=== PATIENT | female | born 1995 | race Two or more races ===

== ENCOUNTER 2017-08-08 04:26 | Emergency (ER) | payer OTHER ==
--- NOTE | 2017-08-08 04:30 | PDOC ---
History of Present Illness - General Stated Complaint: ABDOMINAL AND SIDE PAIN Time Seen by Provider: 08/08/17 04:29 - History of Present Illness Initial Comments: 08/08/17 04:29 Ms. Ott is a 22 yo woman w/ no pmh who presents c/o a 1 day history of left abdominal and flank pain. She reports the pain started around 10 am and has steadily increased throughout the day. She describes the pain as constant and radiating from her LLQ to her L flank. She has also had associated nausea w/ out vomiting, diarrhea, or other urinary/bowel changes. The patient denies chest pain, shortness of breath, headache and dizziness. Denies fever, chills, vomit, and constipation. Denies dysuria, frequency, urgency and hematuria. Allergies: NKDA Past History - Past Medical History Allergies/Adverse Reactions: Allergies Allergy/AdvReac Type Severity Reaction Status Date / Time almonds Allergy Intermediate Itching Uncoded 08/08/17 04:44 carrots Allergy Intermediate Swelling Uncoded 08/08/17 04:44 cherries Allergy Intermediate Swelling Uncoded 08/08/17 04:44 Home Medications: Ambulatory Orders NK [No Known Home Medication] 08/08/17 Asthma: No Cancer: No Cardiac Disorders: No Diabetes: No HTN: No Seizures: No Thyroid Disease: Yes (no longer on meds) - Immunization History Immunization Up to Date: Yes - Suicide/Smoking/Psychosocial Hx Smoking Status: No Smoking History: Never smoked Number of Cigarettes Smoked Daily: 0 Hx Alcohol Use: No Drug/Substance Use Hx: No Hx Substance Use Treatment: No Review of Systems - Review of Systems Comments:: 08/08/17 04:29 GENERAL/CONSTITUTIONAL: No fever or chills. No weakness. HEAD, EYES, EARS, NOSE AND THROAT: No change in vision. No ear pain or discharge. No sore throat. CARDIOVASCULAR: No chest pain or shortness of breath RESPIRATORY: No cough, wheezing, or hemoptysis. GASTROINTESTINAL: +LLQ pain radiating to flank as described with associated nausea. No vomiting, diarrhea or constipation. GENITOURINARY: No dysuria, frequency, or change in urination. MUSCULOSKELETAL: No joint or muscle swelling or pain. No neck or back pain. SKIN: No rash NEUROLOGIC: No headache, vertigo, loss of consciousness, or change in strength/ sensation. ENDOCRINE: No increased thirst. No abnormal weight change HEMATOLOGIC/LYMPHATIC: No anemia, easy bleeding, or history of blood clots. ALLERGIC/IMMUNOLOGIC: No hives or skin allergy. *Physical Exam - Physical Exam Comments: 08/08/17 04:29 GENERAL: Awake, alert, and fully oriented, in no acute distress HEAD: No signs of trauma, normocephalic, atraumatic EYES: PERRLA, EOMI, sclera anicteric, conjunctiva clear ENT: Auricles normal inspection, hearing grossly normal, nares patent, oropharynx clear without exudates. Moist mucosa NECK: Normal ROM, supple, no lymphadenopathy, JVD, or masses LUNGS: No distress, speaks full sentences, clear to auscultation bilaterally HEART: Regular rate and rhythm, normal S1 and S2, no murmurs, rubs or gallops, peripheral pulses normal and equal bilaterally. ABDOMEN: +LLQ TTP. Soft, normoactive bowel sounds. No guarding, no rebound. No masses EXTREMITIES: Normal inspection, Normal range of motion, no edema. No clubbing or cyanosis. NEUROLOGICAL: Cranial nerves II through XII grossly intact. Normal speech, normal gait, no focal sensorimotor deficits SKIN: Warm, Dry, normal turgor, no rashes or lesions noted. ED Treatment Course - LABORATORY CBC & Chemistry Diagram: 08/08/17 05:10 08/08/17 05:10 Medical Decision Making - Medical Decision Making 08/08/17 05:02 Ms. Ott is a 22 yo woman w/ no pmh who presents for evaluation of left abdominal / flank pain. CBC/CMP/UA/Urine Cx/upreg/CT abdomen sent for evaluation. 08/08/17 06:43 Labs as below significant for UTI with 2+ Leukocyte Esterase and 1+ blood. Patient signed out to Dr. Chopra for further care. Laboratory Results - last 24 hr 08/08/17 08/08/17 08/08/17 05:10 05:10 05:10 WBC 11.6 H RBC 4.17 D Hgb 13.2 D Hct 38.5 D MCV 92.2 MCH 31.7 MCHC 34.4 RDW 12.8 D Plt Count 252 D MPV 7.4 L D Neutrophils % 77.9 Lymphocytes % 10.2 D Monocytes % 10.6 H Eosinophils % 0.6 Basophils % 0.7 D Sodium 139 Potassium 3.9 Chloride 106 Carbon Dioxide 25 Anion Gap 8 BUN 9 Creatinine 0.8 Creat Clearance w eGFR > 60 Random Glucose 96 Calcium 8.6 Total Bilirubin 1.6 H AST 9 L ALT 15 Alkaline Phosphatase 43 L Total Protein 7.6 Albumin 3.7 Serum , Qual Negative Urine Color Urine Appearance Urine pH Ur Specific [place] Urine Protein Urine Glucose (UA) Urine Ketones Urine Blood Urine Nitrite Urine Bilirubin Urine Urobilinogen Ur Leukocyte Esterase Urine WBC (Auto) Urine RBC (Auto) 08/08/17 06:02 WBC RBC Hgb Hct MCV MCH MCHC RDW Plt Count MPV Neutrophils % Lymphocytes % Monocytes % Eosinophils % Basophils % Sodium Potassium Chloride Carbon Dioxide Anion Gap BUN Creatinine Creat Clearance w eGFR Random Glucose Calcium Total Bilirubin AST ALT Alkaline Phosphatase Total Protein Albumin Serum , Qual Urine Color Straw Urine Appearance Clear Urine pH 6.0 Ur Specific [place] 1.004 Urine Protein Negative Urine Glucose (UA) Negative Urine Ketones Negative Urine Blood 1+ H Urine Nitrite Negative Urine Bilirubin Negative Urine Urobilinogen Negative Ur Leukocyte Esterase 2+ H Urine WBC (Auto) 43 Urine RBC (Auto) 2 *DC/Admit/Observation/Transfer Diagnosis at time of Disposition: UTI (urinary tract infection) Qualifiers: Urinary tract infection type: site unspecified Hematuria presence: with hematuria Qualified Code(s): N39.0 - Urinary tract infection, site not specified ; R31.9 - Hematuria, unspecified; R31.9 - Hematuria, unspecified - Referrals Referrals: Callie Cary MD [Primary Care Provider] - - Patient Instructions - Post Discharge Activity
[2017-08-08 04:45] VITALS: BMI 27.3
[2017-08-08 05:24] LABS: BASO % 0.7 % (0-2.0); EOS % 0.6 % (0-4.5); HEMATOCRIT 38.5 % (32.4-45.2); HEMOGLOBIN 13.2 GM/dL (10.7-15.3); LYMPH % 10.2 % (8-40); MCH 31.7 pg (25.7-33.7); MCHC 34.4 g/dl (32.0-36.0); MEAN CELL VOLUME 92.2 fl (80-96); MEAN PLT VOLUME 7.4 fl (7.5-11.1); MONO % 10.6 % (3.8-10.2); NEUT % 77.9 % (42.8-82.8); PLATELET COUNT 252 K/MM3 (134-434); RBC 4.17 M/mm3 (3.60-5.2); RDW 12.8 % (11.6-15.6); WHITE BLOOD COUNT 11.6 K/mm3 (4.0-10.0)
--- NOTE | 2017-08-08 05:31 | PDOC ---
Attending Attestation - Resident Resident Name: Gamal Muñoz - ED Attending Attestation I have performed the following: I have examined & evaluated the patient, The case was reviewed & discussed with the resident, I agree w/resident's findings & plan, Exceptions are as noted - HPI HPI: 08/08/17 05:31 "Patient is a 22 year old female with no significant past medical history of who presents to the ED with complaints of lower left quadrant pain that began yesterday morning. Patient reports waking up yesterday morning and experienced sudden lower left quadrant pain that she states has gotten worse over time. She reports experiencing associated left flank pain. Denies dysuria. Denies F/C. Pt denies h/o kidney stones. Denies N/V/D. Denies any migration of the pain over time. Pt states the pain is constant, not colicky. Denies vaginal discharge/ bleeding. Denies chest pain, Sob. Denies nausea, vomiting. Denies contact with sick individuals, out of state travelling. Denies trauma to affected area. Allergies: Almonds, Carrots, cherries Social history: No smoking. No alcohol. No illicit drugs. Surgical history: none PMD: None " - Physicial Exam PE: 08/08/17 05:19 "GENERAL: Awake, alert, and fully oriented, in no acute distress. HEAD: No signs of trauma EYES: PERRLA, EOMI, sclera anicteric, conjunctiva clear ENT: Auricles normal inspection, hearing grossly normal, nares patent, oropharynx clear without exudates. Moist mucosa NECK: Nontender, no stepoffs, Normal ROM, supple, no lymphadenopathy, JVD, or masses LUNGS: Breath sounds equal, clear to auscultation bilaterally. No wheezes, and no crackles HEART: Regular rate and rhythm, normal S1 and S2, no murmurs, rubs or gallops ABDOMEN: +L side tenderness, no significant abdominal tenderness, no CVAT, normoactive bowel sounds. No guarding, no rebound. No masses EXTREMITIES: Normal range of motion, no edema. No clubbing or cyanosis. No cords, erythema, or tenderness NEUROLOGICAL: Cranial nerves II through XII intact. 5/5 strength and sensation in all extremities, Normal speech, normal gait, normal cerebellar function SKIN: Warm, Dry, normal turgor, no rashes or lesions noted. " - Medical Decision Making 08/08/17 05:32 22 F with L side pain. Possible renal colic, though pain is constant and not colicky. Also consider colitis or gastroenteritis, though pt denies diarrhea. - Labs, UA, UPT - CTAP UA consistent with UTI. Spiral CT ordered to r/o infected stone vs pyelo. Pt started on Keflex. Pt signed out to oncoming attending at 7am, pending CT and re-evaluation.
[2017-08-08 06:07] LABS: ALBUMIN 3.7 g/dl (3.4-5.0); ANION GAP 8 (8-16); BILIRUBIN,TOTAL 1.6 mg/dL (0.2-1.0); BLOOD UREA NITROGEN 9 mg/dL (7-18); CALCIUM 8.6 mg/dL (8.5-10.1); CHLORIDE 106 mmol/L (98-107); CO2 25 mmol/L (21-32); CREATININE 0.8 mg/dL (0.55-1.02); GLUCOSE,RANDOM 96 mg/dL (74-106); POTASSIUM 3.9 mmol/L (3.5-5.1); SGOT/AST 9 U/L (15-37); SGPT/ALT 15 U/L (12-78); SODIUM 139 mmol/L (136-145); TOT PROT 7.6 g/dl (6.4-8.2)
[2017-08-08 06:08] LABS: ALK PHOS 43 U/L (45-117)
[2017-08-08 06:27] LABS: URINE APPEARANCE CLEAR; URINE BILIRUBIN NEGATIVE (<2.0 mg/dL); URINE BLOOD 1+ (NEGATIVE); URINE COLOR STRAW; URINE GLUCOSE (UA) NEGATIVE (NEGATIVE); URINE KETONE NEGATIVE (NEGATIVE); URINE NITRITE NEGATIVE (NEGATIVE); URINE PROTEIN NEGATIVE (NEGATIVE); URINE UROBILINOGEN NEGATIVE mg/dL (0.2-1.0)
[2017-08-08 06:37] LABS: URINE LEUK ESTERASE 2+ (NEGATIVE)
--- NOTE | 2017-08-08 07:06 | PDOC ---
*Physical Exam - Vital Signs Last Vital Signs Temp Pulse Resp BP Pulse Ox 98.9 F 116 H 20 124/79 99 08/08/17 04:30 08/08/17 04:30 08/08/17 04:30 08/08/17 04:30 08/08/17 04:30 ED Treatment Course - LABORATORY CBC & Chemistry Diagram: 08/08/17 05:10 08/08/17 05:10 - ADDITIONAL ORDERS Additional order review: Laboratory Results 08/08/17 08/08/17 08/08/17 06:02 05:10 05:10 Sodium 139 Potassium 3.9 Chloride 106 Carbon Dioxide 25 Anion Gap 8 BUN 9 Creatinine 0.8 Creat Clearance w eGFR > 60 Random Glucose 96 Calcium 8.6 Total Bilirubin 1.6 H AST 9 L ALT 15 Alkaline Phosphatase 43 L Total Protein 7.6 Albumin 3.7 Serum , Qual Negative Urine Color Straw Urine Appearance Clear Urine pH 6.0 Ur Specific [place] 1.004 Urine Protein Negative Urine Glucose (UA) Negative Urine Ketones Negative Urine Blood 1+ H Urine Nitrite Negative Urine Bilirubin Negative Urine Urobilinogen Negative Ur Leukocyte Esterase 2+ H Urine WBC (Auto) 43 Urine RBC (Auto) 2 08/08/17 05:10 RBC 4.17 D MCV 92.2 MCHC 34.4 RDW 12.8 D MPV 7.4 L D Neutrophils % 77.9 Lymphocytes % 10.2 D Monocytes % 10.6 H Eosinophils % 0.6 Basophils % 0.7 D Medical Decision Making - Medical Decision Making 08/08/17 07:04 Pt signed out to me. Currently getting spiral CT to R/O renal calculi. Pt did not want pain medications. 08/08/17 08:31 Patient requested PO tylenol Wants to be able to return to work today, so Keflex prescribed instead of ceftriaxone. Pending Spiral CT 08/08/17 09:[address] for renal calculi showed no acute findings, fluid in peritoneum Patient likely has acute L pyelonephritis Plan: Discharge on pain mx and Caps keflex 500mg tid x 14days One dose of 600mg Motrin given, to continue tylenol PO 650mg Q6H at home Pt currently feeling better, pain is improved and feels she can work this night with the Motrin dose. 08/08/17 09:45 *DC/Admit/Observation/Transfer Diagnosis at time of Disposition: UTI (urinary tract infection) Qualifiers: Urinary tract infection type: site unspecified Hematuria presence: with hematuria Qualified Code(s): N39.0 - Urinary tract infection, site not specified - Discharge Dispostion Disposition: HOME Condition at time of disposition: Fair Admit: No - Prescriptions Prescriptions: Cephalexin Monohydrate [Keflex -] 500 mg PO Q8H #41 capsule - Referrals Referrals: Callie Cary MD [Primary Care Provider] - - Patient Instructions Additional Instructions: You were in the ED for blood in your urine and pain in your left side. You were tested with a CT scan to check for stones in your kidneys and none were seen. Your urine showed you could have a kidney infection We gave you one dose of Keflex 500mg caps in the ED and we are discharging you on Keflex 500mg to be taken three times a day for a total of 14 days. You can continue to take tylenol for pain. Follow up with your primary doctor in two week. If you have worsening fever and pain, or are unable to urinate, please return to the ED. - Post Discharge Activity Forms/Work/School Notes: Back to Work - Attestations Physician Attestion: 08/08/17 09:20 Beth Chopra MD
[2017-08-08] MEDS ORDERED: CEFTRIAXONE 1 GM in DEXTROSE 5%-WATER - 50 ML IVPB ONE (07:16)
[2017-08-08] MEDS ORDERED: CEPHALEXIN MONOHYDRATE 500 MG CAPSULE (UD) PO ONE (07:41)
[2017-08-08] MEDS ORDERED: CEPHALEXIN MONOHYDRATE 500 MG CAPSULE (UD) ONE (07:52)
[2017-08-08 07:58] VITALS: BP 119/68; PULSE 94; TEMP 98.6
[2017-08-08] MEDS ORDERED: ACETAMINOPHEN 325 MG TABLET (FP) ONE (07:59)
[2017-08-08] MEDS ORDERED: ACETAMINOPHEN 325 MG TABLET (FP) PO ONE (08:01)
[2017-08-08] MEDS ORDERED: ACETAMINOPHEN 1000 MG/100 ML VIAL (NON FORMULARY) IVPB ONE (09:28)
[2017-08-08] MEDS ORDERED: IBUPROFEN 600 MG TABLET (FP) PO ONE (09:39)
[2017-08-08] MEDS ORDERED: CEPHALEXIN MONOHYDRATE 500 MG CAPSULE (UD) PO SCH (10:00)
== END 2017-08-08 10:02 | disposition home or self-care (01) ==
LOC: JER 04:26
DX: N39.0 Urinary tract infection, site not specified (principal); R31.9 Hematuria, unspecified
CPT/HCPCS: 36415; 74176-TC; 80053; 81003; 81015; 84703; 85025; 87086; 87186; 99283-25

== ENCOUNTER 2018-04-03 15:37 | Emergency (ER) | payer OTHER ==
[2018-04-03 15:56] VITALS: TEMP 98; BMI 30.4
--- NOTE | 2018-04-03 16:09 | PDOC ---
History of Present Illness - General Chief Complaint: Vomiting Blood Stated Complaint: VOMITING BLOOD Time Seen by Provider: 04/03/18 16:09 - History of Present Illness Initial Comments: 22 year old female with no PMH presenting with nausea, vomiting, abdominal pain , and hematemesis after a night of heaving drinking. States that she vomited early this AM and her emesis was non-bloody but three episodes after that were subsequently more bloody. She has never had this issue before. Denies melena or hematochezia. She has mild epigastric pain but no chest pain, back pain, SOB, fevers, chills, lightheadedness, or other symptoms. She does not believe she is . 04/03/18 20:36 Past History - Past Medical History Allergies/Adverse Reactions: Allergies Allergy/AdvReac Type Severity Reaction Status Date / Time Sulfa (Sulfonamide Allergy Intermediate Difficulty Verified 04/03/18 15:48 Antibiotics) Breathing No Known Drug Allergies Allergy Verified 04/03/18 15:46 almonds Allergy Intermediate Itching Uncoded 04/03/18 15:46 carrots Allergy Intermediate Swelling Uncoded 04/03/18 15:46 cherries Allergy Intermediate Swelling Uncoded 04/03/18 15:46 Home Medications: Ambulatory Orders NK [No Known Home Medication] 04/03/18 Asthma: No Cancer: No Cardiac Disorders: No COPD: No Diabetes: No HTN: No Seizures: No Thyroid Disease: Yes (no longer on meds) - Reproductive History (#): 3 Para: 1 - Immunization History Immunization Up to Date: Yes - Suicide/Smoking/Psychosocial Hx Smoking Status: No Smoking History: Never smoked Have you smoked in the past 12 months: No Number of Cigarettes Smoked Daily: 0 Hx Alcohol Use: No Drug/Substance Use Hx: No Substance Use Type: None Hx Substance Use Treatment: No Review of Systems - Review of Systems Constitutional: No: Chills, Diaphoresis, Fever HEENTM: No: Eye Pain, Blurred Vision, Tearing Respiratory: No: Cough, Orthopnea, Shortness of Breath, Wheezing Cardiac (ROS): No: Chest Pain, Edema, Irregular Heart Rate, Palpitations ABD/GI: Yes: Nausea, Vomiting. No: Abdominal Distended, Diarrhea, Rectal Bleeding, Abdominal cramping : No: Burning, Dysuria, Discharge Musculoskeletal: No: Back Pain, Joint Pain, Muscle Weakness Integumentary: No: Bruising, Erythema, Flushing, Lesions, Lumps Neurological: No: Headache, Numbness, Paresthesia, Tingling Psychiatric: No: Anxiety, Depression Hematologic/Lymphatic: No: Anemia, Blood Clots, Easy Bleeding *Physical Exam - Vital Signs Last Vital Signs Temp Pulse Resp BP Pulse Ox 98.0 F 75 18 108/75 98 04/03/18 15:47 04/03/18 15:47 04/03/18 15:47 04/03/18 15:47 04/03/18 15:47 - Physical Exam General Appearance: Yes: Nourished, Appropriately Dressed. No: Apparent Distress HEENT: positive: EOMI, VINCE, Normal ENT Inspection, Normal Voice Neck: positive: Trachea midline, Normal Thyroid, Supple. negative: Tender, Rigid Respiratory/Chest: positive: Lungs Clear, Normal Breath Sounds. negative: Chest Tender, Respiratory Distress, Accessory Muscle Use Cardiovascular: positive: Regular Rhythm, Tachycardia. negative: Regular Rate Gastrointestinal/Abdominal: positive: Normal Bowel Sounds, Tender (epigastric tenderness), Flat, Soft Lymphatic: negative: Adenopathy, Tenderness Musculoskeletal: positive: Normal Inspection. negative: Decreased Range of Motion Extremity: positive: Normal Capillary Refill, Normal Inspection, Normal Range of Motion. negative: Tender Integumentary: positive: Normal Color, Dry, Warm Neurologic: positive: Fully Oriented, Alert, Normal Mood/Affect, Normal Response , Motor Strength 5/5 Moderate Sedation - Procedure Monitoring Vital Signs: Procedure Monitoring Vital Signs Temperature 98.0 F 04/03/18 15:47 Pulse Rate 75 04/03/18 15:47 Respiratory Rate 18 04/03/18 15:47 Blood Pressure 108/75 04/03/18 15:47 O2 Sat by Pulse Oximetry (%) 98 04/03/18 15:47 ED Treatment Course - LABORATORY CBC & Chemistry Diagram: 04/03/18 16:58 04/03/18 16:58 Medical Decision Making - Medical Decision Making 1 year old with multiple episodes of vomiting after heavy etoh consumption the previous evening concerning for alcoholic gastritis vs. Zuri Jakcson tear. Labs WNL, CXR negative, HCG negative, patient no longer vomiting and stable to go home with VSS after fluids, zofran, carafate, PPI, and H2. Will DC with GI follow up and return precautions. 04/03/18 20:41 *DC/Admit/Observation/Transfer Diagnosis at time of Disposition: Hematemesis/vomiting blood Qualifiers: Nausea presence: with nausea Qualified Code(s): K92.0 - Hematemesis Alcoholic gastritis Qualifiers: Chronicity: acute Gastritis bleeding: with bleeding Qualified Code(s): K29.21 - Alcoholic gastritis with bleeding - Discharge Dispostion Disposition: HOME Condition at time of disposition: Improved Decision to Admit order: No - Referrals Referrals: Callie Cary MD [Primary Care Provider] - Dena Kline MD [Staff Physician] - - Patient Instructions Printed Discharge Instructions: DI for Alcoholic Gastritis Additional Instructions: Please eat a bland diet for the next week. Avoid spicy, hot, or acidic foods ( citrus fruits, sodas, vinegar, etc). Please follow up with the GI doctor on this sheet. Please return to the Ed if you have new or worsening symptoms. - Post Discharge Activity
[2018-04-03] MEDS ORDERED: PANTOPRAZOLE SODIUM 40 MG VIAL IVPUSH ONE (16:30)
[2018-04-03] MEDS ORDERED: FAMOTIDINE 20 MG/50 ML IVPB 20 MG/50 ML MG IVPB ONE ×2 (16:32→17:03)
[2018-04-03] MEDS ORDERED: SODIUM CHLORIDE 0.9% 500 ML INFUS.BAG IV ONE (16:33)
[2018-04-03] MEDS ORDERED: ONDANSETRON 4 MG/2 ML VIAL IVPUSH ONE (16:33)
[2018-04-03] MEDS ORDERED: PANTOPRAZOLE SODIUM 40 MG/100 ML BAG IVPB ONE (17:03)
[2018-04-03] MEDS ORDERED: ONDANSETRON 4 MG/2 ML VIAL ONE (17:03)
--- NOTE | 2018-04-03 17:22 | PDOC ---
Attending Attestation - Resident Resident Name: Prince Tipton - ED Attending Attestation I have performed the following: I have examined & evaluated the patient, The case was reviewed & discussed with the resident, I agree w/resident's findings & plan, Exceptions are as noted - HPI HPI: 04/03/18 18:04 The patient is a 22 year old female with a significant PMH of hypothyroidism, not currently on any meds as well controlled, presents to the ED with hematemesis since this morning after heavy drinking last night. Patient reports having 5 drinks of vodka with pineapple last night and began experiencing vomiting this morning, which is not unusual for her after a night of drinking. The patient notes the first two episodes of vomit were nonbloody, nonbilious, the third episode was pink-tinged, and the fourth and fifth were bright red, but denies seeing any blood clots. Patient also admits to mild epigastric pain. Patient has not taken any medications for her symptoms. Denies any use of NSAIDs. Patient does not usually drink excessively. Denies dark or bloody stools. Patient is feeling well in the ER with no abd pain and requesting to eat. The patient denies chest pain, shortness of breath, headache and dizziness. Denies fever, chills, diarrhea and constipation. Denies dysuria, frequency, urgency and hematuria. Allergies: NKA Past surgical history: None reported. Social history: No reported drug or cigarette use. Social drinking. - Physicial Exam PE: 04/03/18 18:10 GENERAL: Awake, alert, and fully oriented, in no acute distress HEAD: No signs of trauma EYES: PERRLA, EOMI, sclera anicteric, conjunctiva clear ENT: Nares patent, oropharynx clear without exudates. Moist mucosa NECK: Normal ROM, supple LUNGS: Breath sounds equal, clear to auscultation bilaterally. No wheezes, and no crackles HEART: Regular rate and rhythm, normal S1 and S2, no murmurs, rubs or gallops ABDOMEN: Soft, nontender, normoactive bowel sounds. No guarding, no rebound. No masses EXTREMITIES: Normal range of motion, no edema. No clubbing or cyanosis. No cords, erythema, or tenderness NEUROLOGICAL: Normal speech, cranial nerves intact, 5/5 strength in all 4 extremities, normal sensation to light touch in all 4 extremities, normal gait SKIN: Warm, Dry, normal turgor, no rashes or lesions noted. 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 Vitals unremarkable, exam unremarkable, no abd ttp. No concomitant NSAID use. Likely alcoholic gastritis. No further emesis in ED. Plan to check labs, UPT, symptomatic tx, PO challenge and reassess. <Hari Sparrow - Last Filed: 04/03/18 18:10> - Medical Decision Making 04/03/18 20:37 Pt signed out to me. UA shows she is not . She has normal labs; she is hemodynamically stable and she is tolerating PO and she will be discharged home. <Melissa Anna - Last Filed: 04/03/18 20:38>
[2018-04-03 17:48] LABS: BASO % 0.4 % (0-2.0); EOS % 0.7 % (0-4.5); HEMATOCRIT 41.5 % (32.4-45.2); HEMOGLOBIN 14.6 GM/dL (10.7-15.3); LYMPH % 12.6 % (8-40); MCH 31.3 pg (25.7-33.7); MCHC 35.1 g/dl (32.0-36.0); MEAN CELL VOLUME 89.3 fl (80-96); MEAN PLT VOLUME 7.4 fl (7.5-11.1); MONO % 4.1 % (3.8-10.2); NEUT % 82.2 % (42.8-82.8); PLATELET COUNT 295 K/MM3 (134-434); RBC 4.65 M/mm3 (3.60-5.2); RDW 13.3 % (11.6-15.6); WHITE BLOOD COUNT 10.4 K/mm3 (4.0-10.0)
[2018-04-03 18:01] LABS: INR 1.04 (0.83-1.09); PROTHROMBIN TIME (PATIENT) 12.3 SEC (9.7-13.0)
[2018-04-03 18:17] LABS: ALK PHOS 52 U/L (45-117); BLOOD UREA NITROGEN 10 mg/dL (7-18); GLUCOSE,RANDOM 74 mg/dL (74-106)
[2018-04-03 18:18] LABS: ALBUMIN 4.2 g/dl (3.4-5.0); ANION GAP 9 MMOL/L (8-16); BILIRUBIN,TOTAL 0.9 mg/dL (0.2-1); CHLORIDE 108 mmol/L (98-107); CO2 25 mmol/L (21-32); CREATININE 0.6 mg/dL (0.55-1.3); POTASSIUM 4.2 mmol/L (3.5-5.1); SGOT/AST 17 U/L (15-37); SGPT/ALT 22 U/L (13-61); SODIUM 142 mmol/L (136-145); TOT PROT 8.2 g/dl (6.4-8.2)
[2018-04-03 18:42] LABS: LIPASE 120 U/L (73-393)
[2018-04-03 20:56] VITALS: BP 112/70; PULSE 72
== END 2018-04-03 20:55 | disposition home or self-care (01) ==
LOC: JER 15:37
PROC: 3E033GC Introduction of Other Therapeutic Substance into Peripheral Vein, Percutaneous Approach (ICD-10-PCS; principal; 2018-04-03)
PROC: 3E033GC Introduction of Other Therapeutic Substance into Peripheral Vein, Percutaneous Approach (ICD-10-PCS; 2018-04-03)
PROC: 3E033GC Introduction of Other Therapeutic Substance into Peripheral Vein, Percutaneous Approach (ICD-10-PCS; 2018-04-03)
DX: K29.21 Alcoholic gastritis with bleeding (principal)
CPT/HCPCS: 36415; 71046-TC-FY; 80053; 83690; 84703; 85025; 85610; 96365; 96375; 99284-25

== ENCOUNTER 2018-06-05 13:50 | Emergency (ER) | payer OTHER ==
[2018-06-05 14:30] VITALS: BP 112/78; PULSE 70; TEMP 97.8; BMI 30.7
--- NOTE | 2018-06-05 14:45 | PDOC ---
History of Present Illness - General Chief Complaint: Pain Stated Complaint: ABD PAIN / VOMIT Time Seen by Provider: 06/05/18 14:42 History Source: Patient - History of Present Illness Timing/Duration: reports: other (this am) Quality: reports: severe Abdominal Pain Onset Location: reports: epigastric Past History - Past Medical History Allergies/Adverse Reactions: Allergies Allergy/AdvReac Type Severity Reaction Status Date / Time Sulfa (Sulfonamide Allergy Intermediate Difficulty Verified 04/03/18 15:48 Antibiotics) Breathing No Known Drug Allergies Allergy Verified 04/03/18 15:46 almonds Allergy Intermediate Itching Uncoded 04/03/18 15:46 carrots Allergy Intermediate Swelling Uncoded 04/03/18 15:46 cherries Allergy Intermediate Swelling Uncoded 04/03/18 15:46 Home Medications: Ambulatory Orders Famotidine [Pepcid] 20 mg PO DAILY #14 tablet 06/05/18 Ondansetron HCl [Zofran] 4 mg PO Q8H #15 tablet 06/05/18 Asthma: No Cancer: No Cardiac Disorders: No COPD: No Diabetes: No GI Disorders: Yes (alcoholic gastritis) HTN: No Seizures: No Thyroid Disease: Yes (no longer on meds) - Reproductive History (#): 3 Para: 1 - Immunization History Immunization Up to Date: Yes - Suicide/Smoking/Psychosocial Hx Smoking Status: No Smoking History: Never smoked Have you smoked in the past 12 months: No Number of Cigarettes Smoked Daily: 0 Hx Alcohol Use: No Drug/Substance Use Hx: Yes (Marijuanna) Substance Use Type: None Hx Substance Use Treatment: No Review of Systems - Review of Systems Constitutional: No: Chills, Fever ABD/GI: Yes: Nausea, Vomiting. No: Blood Streaked Bowels, Diarrhea, Rectal Bleeding, Tarry Stools : No: Burning, Dysuria, Flank Pain *Physical Exam - Vital Signs Last Vital Signs Temp Pulse Resp BP Pulse Ox 97.8 F 70 20 112/78 99 06/05/18 14:04 06/05/18 14:04 06/05/18 14:04 06/05/18 14:04 06/05/18 14:04 - Physical Exam General Appearance: Yes: Appropriately Dressed, Mild Distress HEENT: positive: Normal Voice Neck: positive: Supple Respiratory/Chest: negative: Respiratory Distress Gastrointestinal/Abdominal: positive: Normal Bowel Sounds, Tender (epigastrium) , Soft. negative: Distended, Guarding, Rebound Musculoskeletal: negative: CVA Tenderness Integumentary: positive: Dry, Warm Neurologic: positive: Fully Oriented, Alert, Normal Mood/Affect Moderate Sedation - Procedure Monitoring Vital Signs: Procedure Monitoring Vital Signs Temperature 97.8 F 06/05/18 14:04 Pulse Rate 70 06/05/18 14:04 Respiratory Rate 20 06/05/18 14:04 Blood Pressure 112/78 06/05/18 14:04 O2 Sat by Pulse Oximetry (%) 99 06/05/18 14:04 ED Treatment Course - LABORATORY CBC & Chemistry Diagram: 06/05/18 15:00 06/05/18 15:00 Medical Decision Making - Medical Decision Making 06/05/18 14:44 22 yo F, hypothyroid, p/w nausea, vomiting. Patient states since she woke up this am, she has had several e/o NB, NB n/v w/ epigastric pain that started after the nausea, vomiting began. No change in BM, melena, BPBPR, fever or chills. Denies dysuria, hematuria or vaginal discharge. No unusual food recently. Was seen in ED for similar episode 2 months ago and states she was told she had gastritis. 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 Denies history of alcohol abuse See exam Possible gastritis/GERD, less likely biliary source, pancreatitis, renal colic or appy -GI cocktail -IVF -labs -reassess/po trial 06/05/18 16:55 Labs wnl. Nausea resolved but pt continues to c/o pain. Will continues to manage pain in ED 06/05/18 18:19 Pain now resolved per patient. Able to tolerate po at this time. Will dc with supportive treatment and give GI referral *DC/Admit/Observation/Transfer Diagnosis at time of Disposition: Epigastric abdominal pain Nausea and vomiting Qualifiers: Vomiting type: unspecified Vomiting Intractability: non-intractable Qualified Code(s): R11.2 - Nausea with vomiting, unspecified - Discharge Dispostion Disposition: HOME Condition at time of disposition: Improved - Prescriptions Prescriptions: Famotidine [Pepcid] 20 mg PO DAILY #14 tablet Ondansetron HCl [Zofran] 4 mg PO Q8H #15 tablet - Referrals Referrals: Callie Cary MD [Primary Care Provider] - Jakob Carrero MD [Staff Physician] - - Patient Instructions Printed Discharge Instructions: Gastritis Additional Instructions: Take medications as prescribed and follow-up with Dr. Carrero of GI - Post Discharge Activity Forms/Work/School Notes: Back to Work
[2018-06-05] MEDS ORDERED: MAG HYDROX/AL HYDROX/SIMETH 30 ML UNIT-DOSE CUP PO ONE (14:46)
[2018-06-05] MEDS ORDERED: FAMOTIDINE 20 MG/50 ML IVPB 20 MG/50 ML MG IVPB ONE ×2 (14:46→14:49)
[2018-06-05] MEDS ORDERED: ONDANSETRON 4 MG/2 ML VIAL IVPUSH ONE (14:46)
[2018-06-05] MEDS ORDERED: SODIUM CHLORIDE 1,000 ML IV STA (14:47)
[2018-06-05] MEDS ORDERED: MAG HYDROX/AL HYDROX/SIMETH 30 ML UNIT-DOSE CUP ONE (14:48)
[2018-06-05] MEDS ORDERED: ONDANSETRON 4 MG/2 ML VIAL ONE (14:49)
[2018-06-05 15:11] LABS: BASO % 0.2 % (0-2.0); EOS % 1.4 % (0-4.5); HEMATOCRIT 46.5 % (32.4-45.2); HEMOGLOBIN 16.1 GM/dL (10.7-15.3); LYMPH % 5.1 % (8-40); MCH 32.2 pg (25.7-33.7); MCHC 34.7 g/dl (32.0-36.0); MEAN CELL VOLUME 92.9 fl (80-96); MEAN PLT VOLUME 7.5 fl (7.5-11.1); MONO % 3.7 % (3.8-10.2); NEUT % 89.6 % (42.8-82.8); PLATELET COUNT 250 K/MM3 (134-434); RDW 13.8 % (11.6-15.6); WHITE BLOOD COUNT 11.4 K/mm3 (4.0-10.0)
[2018-06-05 15:28] LABS: ALBUMIN 3.8 g/dl (3.4-5.0); ALK PHOS 52 U/L (45-117); ANION GAP 6 MMOL/L (8-16); BILIRUBIN,TOTAL 0.5 mg/dL (0.2-1); BLOOD UREA NITROGEN 12 mg/dL (7-18); CALCIUM 8.6 mg/dL (8.5-10.1); CHLORIDE 105 mmol/L (98-107); CO2 28 mmol/L (21-32); CREATININE 0.7 mg/dL (0.55-1.3); GLUCOSE,RANDOM 89 mg/dL (74-106); LIPASE 117 U/L (73-393); POTASSIUM 4.5 mmol/L (3.5-5.1); SGOT/AST 20 U/L (15-37); SGPT/ALT 20 U/L (13-61); SODIUM 138 mmol/L (136-145); TOT PROT 7.5 g/dl (6.4-8.2)
[2018-06-05 16:05] LABS: URINE APPEARANCE CLEAR; URINE BILIRUBIN NEGATIVE (<2.0 mg/dL); URINE COLOR LTYELLOW; URINE GLUCOSE (UA) NEGATIVE (NEGATIVE); URINE KETONE TRACE (NEGATIVE); URINE LEUK ESTERASE NEGATIVE (NEGATIVE); URINE NITRITE NEGATIVE (NEGATIVE); URINE PROTEIN NEGATIVE (NEGATIVE); URINE UROBILINOGEN NEGATIVE mg/dL (0.2-1.0)
[2018-06-05] MEDS ORDERED: ACETAMINOPHEN 325 MG TABLET (FP) PO ONE (16:54)
[2018-06-05] MEDS ORDERED: KETOROLAC TROMETHAMINE 30 MG/1 ML VIAL IVPUSH ONE (16:54)
[2018-06-05] MEDS ORDERED: ACETAMINOPHEN 325 MG TABLET (FP) ONE (17:18)
[2018-06-05] MEDS ORDERED: KETOROLAC TROMETHAMINE 30 MG/1 ML VIAL ONE (17:18)
== END 2018-06-05 18:35 | disposition home or self-care (01) ==
LOC: JER 13:50
PROC: 3E033GC Introduction of Other Therapeutic Substance into Peripheral Vein, Percutaneous Approach (ICD-10-PCS; principal; 2018-06-05)
PROC: 3E033GC Introduction of Other Therapeutic Substance into Peripheral Vein, Percutaneous Approach (ICD-10-PCS; 2018-06-05)
PROC: 3E0333Z Introduction of Anti-inflammatory into Peripheral Vein, Percutaneous Approach (ICD-10-PCS; 2018-06-05)
DX: K29.70 Gastritis, unspecified, without bleeding (principal); R10.13 Epigastric pain; R11.2 Nausea with vomiting, unspecified; E03.9 Hypothyroidism, unspecified
CPT/HCPCS: 36415; 80053; 81003; 83690; 84703; 85025; 96365; 96375; 99282-25; J7030

== ENCOUNTER 2018-10-02 01:27 | Emergency (ER) | payer OTHER | END 2018-10-02 02:42 | disposition home or self-care (01) | LOC: JER 01:27 ==

== ENCOUNTER 2018-11-04 14:01 | Emergency (ER) | payer OTHER ==
[2018-11-04] MEDS ORDERED: DIPHTH,PERTUSS(ACELL),TET 0.5 ML DISP.SYRIN IM ONE ×2 (14:10→14:36)
--- NOTE | 2018-11-04 14:10 | PDOC ---
Rapid Medical Evaluation Time Seen by Provider: 11/04/18 14:05 Medical Evaluation: Allergies Allergy/AdvReac Type Severity Reaction Status Date / Time Sulfa (Sulfonamide Allergy Intermediate Difficulty Verified 10/02/18 01:31 Antibiotics) Breathing No Known Drug Allergies Allergy Verified 10/02/18 01:31 almonds Allergy Intermediate Itching Uncoded 10/02/18 01:31 carrots Allergy Intermediate Swelling Uncoded 10/02/18 01:31 cherries Allergy Intermediate Swelling Uncoded 10/02/18 01:31 11/04/18 14:06 I have performed a brief in-person evaluation of this patient. The patient presents with a chief complaint of: lac to left hand sustained at 0100 Pertinent physical exam findings: superficial laceration to left index MCP. No s /s infection. I have ordered the following: Td The patient will proceed to the ED for further evaluation. Discharge Disposition - Diagnosis Laceration - Referrals - Patient Instructions - Post Discharge Activity
[2018-11-04 14:11] VITALS: BP 97/69; PULSE 60; TEMP 98.8; BMI 28.1
--- NOTE | 2018-11-04 14:53 | PDOC ---
History of Present Illness - General Chief Complaint: Laceration Stated Complaint: WOUND Time Seen by Provider: 11/04/18 14:05 History Source: Patient Exam Limitations: Clinical Condition - History of Present Illness Initial Comments: 11/04/18 17:03 Patient with no significant past medical history present with complaint of laceration to knuckle of left index finger over the MCP of dorsal aspect of left hand status post accidentally scratching the hand on a glass cabinet this afternoon. Does not recall last tetanus vaccine. Denies numbness or tingling sensation. Denies restricted been having movement Timing/Duration: reports: just prior to arrival Past History - Past Medical History Allergies/Adverse Reactions: Allergies Allergy/AdvReac Type Severity Reaction Status Date / Time Sulfa (Sulfonamide Allergy Intermediate Difficulty Verified 11/04/18 14:11 Antibiotics) Breathing No Known Drug Allergies Allergy Verified 11/04/18 14:11 almonds Allergy Intermediate Itching Uncoded 11/04/18 14:11 carrots Allergy Intermediate Swelling Uncoded 11/04/18 14:11 cherries Allergy Intermediate Swelling Uncoded 11/04/18 14:11 Home Medications: Ambulatory Orders Cephalexin Monohydrate [Keflex -] 500 mg PO BID 7 Days #14 capsule 11/04/18 Ibuprofen 600 mg PO Q8H PRN #20 tablet 11/04/18 Asthma: No Cancer: No Cardiac Disorders: No COPD: No Diabetes: No GI Disorders: Yes (alcoholic gastritis) HTN: No Seizures: No Thyroid Disease: Yes (no longer on meds) - Reproductive History (#): 3 Para: 1 - Immunization History Immunization Up to Date: Yes - Suicide/Smoking/Psychosocial Hx Smoking Status: No Smoking History: Never smoked Have you smoked in the past 12 months: No Number of Cigarettes Smoked Daily: 0 Information on smoking cessation initiated: No Hx Alcohol Use: No Drug/Substance Use Hx: No Substance Use Type: None Hx Substance Use Treatment: No Review of Systems - Review of Systems Able to Perform ROS?: Yes Is the patient limited Georgian proficient: No Constitutional: No: Malaise, Weakness HEENTM: No: Symptoms Reported Respiratory: No: Symptoms reported Cardiac (ROS): No: Symptoms Reported Musculoskeletal: Yes: Symptoms Reported, See HPI, Muscle Pain (back pf left hand ) Integumentary: Yes: Symptoms Reported, Other (laceration to back of left hand) Neurological: No: Numbness, Paresthesia, Tingling All Other Systems: Reviewed and Negative *Physical Exam - Vital Signs Last Vital Signs Temp Pulse Resp BP Pulse Ox 98.8 F 60 17 97/69 100 11/04/18 14:07 11/04/18 14:07 11/04/18 14:07 11/04/18 14:07 11/04/18 14:07 - Physical Exam Comments: 11/04/18 17:06 GENERAL: Well developed, well nourished. Awake and alert. No acute distress. CARDIOVASCULAR: Regular rate and rhythm. No murmurs, rubs, or gallops. PULMONARY: No evidence of respiratory distress. MUSCULOSKELETAL : mild tenderness over posterior MCP of left hand over second finger 2 cm laceration over MCP of left index finger with minimal bleeding. Free range of motion of finger and hand. 5 out of 5 strength to left index finger. No bony deformities SKIN: Warm and dry. Normal capillary refill. 2 cm superficial linear laceration over dorsal aspect of MCP and distal distal aspect of left index finger. NEUROLOGICAL: Alert, awake, appropriate. No motor deficits in the lower extremities. Gait is normal without ataxia. PSYCHIATRIC: Cooperative. Good eye contact. Appropriate mood and affect. General Appearance: Yes: Nourished, Appropriately Dressed. No: Apparent Distress Procedures - Laceration/Wound Repair Left Posterior Distal Dorsal Hand 2nd digit Wound Length: to 2.5 cm (2cm) Wound Explored: clean, no foreign body present Wound's Depth, Shape: superficial, linear Irrigated w/ Saline: Yes Betadine Prep: Yes Anesthesia: 1% Lidocaine Amount of Anesthetic (ccs): 2 Wound Repaired With: Sutures Suture Size/Type: 4:0, nylon Number of Sutures: 2 Layer Closure: No Sterile Dressing Applied: Yes Splint Applied: No Sling Applied: No ED Treatment Course - Medications Given in the ED: ED Medications Discontinued Medications Generic Name Dose Route Start Last Admin Trade Name Freq PRN Reason Stop Dose Admin Diphtheria/Tetanus/Acell Pertussis 0.5 ml 11/04/18 14:10 11/04/18 14:45 Boostrix - IM 11/04/18 14:11 0.5 ml .ONCE ONE Administration Medical Decision Making - Medical Decision Making 11/04/18 17:04 Patient with no significant past medical history present with complaint of laceration to knuckle of left index finger over the MCP of dorsal aspect of left hand status post accidentally scratching the hand on a glass cabinet this afternoon. Does not recall last tetanus vaccine. Denies numbness or tingling sensation. Denies restricted been having movement Exam significant for 2 cm superficial laceration over proximal aspect of left index finger on dorsal aspect of her hand over the MCP joint with minimal bleeding. Wound cleaned with Betadine and irrigated with normal saline. Wound closed with 4-0 nylon interrupted sutures after area infiltrated with 2 mL 1% lidocaine. Bacitracin apply to wound and put wound covered adhesive bandage. Patient is stable for discharge on Keflex antibiotics for infection prophylaxis and Motrin when necessary for pain with follow-up in one week for suture removal. Patient educated on home wound care. Patient tolerated procedure well and stable for discharge *DC/Admit/Observation/Transfer Diagnosis at time of Disposition: Laceration - Discharge Dispostion Disposition: HOME Condition at time of disposition: Stable Decision to Admit order: No - Prescriptions Prescriptions: Cephalexin Monohydrate [Keflex -] 500 mg PO BID 7 Days #14 capsule Ibuprofen 600 mg PO Q8H PRN #20 tablet PRN Reason: pain - Referrals Referrals: Braxton Osorio MD, [facility] [Staff Physician] - Callie Cary MD [Primary Care Provider] - - Patient Instructions Printed Discharge Instructions: DI for Laceration Repair Additional Instructions: Take medications as prescribed. Apply warm compress to hand as needed for swelling.Apply bacitracin to wound twice a day. Keep wound clean and dry for the next 24hrs. Follow-up in 1 week for sutures removal - Post Discharge Activity
== END 2018-11-04 15:09 | disposition home or self-care (01) ==
LOC: JERFT 14:01
PROC: 3E0234Z Introduction of Serum, Toxoid and Vaccine into Muscle, Percutaneous Approach (ICD-10-PCS; principal; 2018-11-04)
PROC: 0HQGXZZ Repair Left Hand Skin, External Approach (ICD-10-PCS; 2018-11-04)
PROC: 3E0234Z Introduction of Serum, Toxoid and Vaccine into Muscle, Percutaneous Approach (ICD-10-PCS; 2018-11-04)
DX: S61.412A Laceration without foreign body of left hand, initial encounter (principal); W22.8XXA Striking against or struck by other objects, initial encounter; Y93.89 Activity, other specified; Y92.89 Other specified places as the place of occurrence of the external cause; Y99.8 Other external cause status
CPT/HCPCS: 90715; 99281-25

== ENCOUNTER 2018-11-11 16:27 | Emergency (ER) | payer OTHER ==
--- NOTE | 2018-11-11 16:32 | PDOC ---
Rapid Medical Evaluation Chief Complaint: Suture/Staple Removal(Here) Time Seen by Provider: 11/11/18 16:29 Medical Evaluation: Allergies Allergy/AdvReac Type Severity Reaction Status Date / Time Sulfa (Sulfonamide Allergy Intermediate Difficulty Verified 11/04/18 14:11 Antibiotics) Breathing No Known Drug Allergies Allergy Verified 11/04/18 14:11 almonds Allergy Intermediate Itching Uncoded 11/04/18 14:11 carrots Allergy Intermediate Swelling Uncoded 11/04/18 14:11 cherries Allergy Intermediate Swelling Uncoded 11/04/18 14:11 11/11/18 16:44 I have performed a brief in-person evaluation of this patient. The patient presents with a chief complaint of: suture removal from MCP right 2nd digit Pertinent physical exam findings: FROM / poorly approx with 2 sutures I have ordered the following: nothing The patient will proceed to the ED for further evaluation. Discharge Disposition - Diagnosis Visit for wound check - Discharge Dispostion Disposition: HOME Condition at time of disposition: Stable - Referrals - Patient Instructions Printed Discharge Instructions: How to Care for a Surgical Wound-Liz Additional Instructions: keep as dry as possible. Leave on steristrip return for suture removal - Post Discharge Activity
--- NOTE | 2018-11-11 16:41 | PDOC ---
Suture Removal/Wound Check HPI - History of Present Illness Chief Complaint: Suture/Staple Removal(Here) Stated Complaint: to be seen Time Seen by Provider: 11/11/18 16:29 History Source: Yes: Patient Exam Limitations: Yes: No Limitations Treated at: [facility] Past History - Past Medical History Allergies/Adverse Reactions: Allergies Allergy/AdvReac Type Severity Reaction Status Date / Time Sulfa (Sulfonamide Allergy Intermediate Difficulty Verified 11/11/18 16:33 Antibiotics) Breathing No Known Drug Allergies Allergy Verified 11/11/18 16:33 almonds Allergy Intermediate Itching Uncoded 11/11/18 16:33 carrots Allergy Intermediate Swelling Uncoded 11/11/18 16:33 cherries Allergy Intermediate Swelling Uncoded 11/11/18 16:33 Home Medications: Ambulatory Orders Cephalexin Monohydrate [Keflex -] 500 mg PO BID 7 Days #14 capsule 11/04/18 Ibuprofen 600 mg PO Q8H PRN #20 tablet 11/04/18 Asthma: No Cancer: No Cardiac Disorders: No COPD: No Diabetes: No GI Disorders: Yes (alcoholic gastritis) HTN: No Seizures: No Thyroid Disease: Yes (no longer on meds) - Reproductive History (#): 3 Para: 1 - Immunization History Immunization Up to Date: Yes - Suicide/Smoking/Psychosocial Hx Smoking Status: No Smoking History: Never smoked Have you smoked in the past 12 months: No Number of Cigarettes Smoked Daily: 0 Hx Alcohol Use: No Drug/Substance Use Hx: No Substance Use Type: None Hx Substance Use Treatment: No Suture Removal/Wound Check PE - Physical Exam Laceration/Wound Check Symptoms: reports: None Current Severity Level: None Maximum Severity Level: None *Review of Systems - Review of Systems Able to Perform ROS?: Yes Constitutional: Yes: Symptoms Reported, See HPI, Malaise HEENTM: No: Symptoms Reported Respiratory: No: Symptoms reported Musculoskeletal: Yes: Symptoms Reported, See HPI Integumentary: Yes: Symptoms Reported, See HPI All Other Systems: Reviewed and Negative *Physical Exam - Physical Exam General Appearance: Yes: Nourished, Appropriately Dressed. No: Apparent Distress Extremity: positive: Normal Capillary Refill, Normal Range of Motion, Tender ( mild with some inflammation - no pus ), Other (wound not well approximated with 2 sutures at MCP of 2nd digit. ). negative: Normal Inspection *DC/Admit/Observation/Transfer Diagnosis at time of Disposition: Visit for wound check - Discharge Dispostion Disposition: HOME Condition at time of disposition: Stable Decision to Admit order: No - Referrals - Patient Instructions Printed Discharge Instructions: How to Care for a Surgical Wound-[place] Additional Instructions: keep as dry as possible. Leave on steristrip return for suture removal - Post Discharge Activity
[2018-11-11 17:10] VITALS: BP 104/60; PULSE 75; TEMP 98; BMI 26.6
== END 2018-11-11 16:42 | disposition home or self-care (01) ==
LOC: JERFT 16:27
DX: Z48.817 Encounter for surgical aftercare following surgery on the skin and subcutaneous tissue (principal)
CPT/HCPCS: 99281-25

== ENCOUNTER 2018-11-20 12:20 | Emergency (ER) | payer OTHER | END 2018-11-20 13:02 | disposition home or self-care (01) | LOC: JERFT 12:20 ==

== ENCOUNTER 2020-03-20 17:56 | Emergency (ER) | payer OTHER ==
[2020-03-20 18:12] VITALS: BP 125/80; PULSE 90; TEMP 97.7; BMI 31.9
[2020-03-20 19:24] LABS: THROAT:GRP A STREP ANTIGEN Negative (Negative)
== END 2020-03-20 19:31 | disposition home or self-care (01) ==
LOC: JER 17:56
DX: J02.9 Acute pharyngitis, unspecified (principal)
CPT/HCPCS: 71045-TC-FY; 87070; 87880; 99284-25; C9803; U0003

== ENCOUNTER 2021-04-30 00:41 | Emergency (ER) | payer OTHER ==
[2021-04-30 01:41] VITALS: BP 100/57; PULSE 81; TEMP 97.9; BMI 25.8
[2021-04-30 02:38] LABS: BASO % 0.6 % (0-2.0); EOS % 5.3 % (0-4.5); HEMATOCRIT 39.3 % (32.4-45.2); LYMPH % 34.9 % (8-40); MCH 30.6 pg (25.7-33.7); MCHC 33.1 g/dl (32.0-36.0); MEAN CELL VOLUME 92.4 fl (80-96); MEAN PLT VOLUME 6.9 fl (7.5-11.1); MONO % 6.6 % (3.8-10.2); NEUT % 52.6 % (42.8-82.8); PLATELET COUNT 260 10^3/uL (134-434); RBC 4.25 M/mm3 (3.60-5.2); RDW 13.3 % (11.6-15.6); WHITE BLOOD COUNT 7.6 K/mm3 (4.0-10.0)
[2021-04-30] MEDS ORDERED: RHO(D) IMMUNE GLOBULIN 1,500 UNIT DISP.SYRIN IM ONE (04:17)
== END 2021-04-30 05:02 | disposition home or self-care (01) ==
LOC: JER 00:41
DX: O20.8 Other hemorrhage in early pregnancy (principal); Z3A.01 Less than 8 weeks gestation of pregnancy
CPT/HCPCS: 36415; 76817-TC; 84702; 85025; 86850; 86900; 86901; 99284-25

== ENCOUNTER 2021-05-02 00:40 | Emergency (ER) | payer OTHER ==
[2021-05-02 02:09] VITALS: BP 106/59; PULSE 81; TEMP 98.4; BMI 25.8
[2021-05-02 02:21] LABS: HEMATOCRIT 36.1 % (32.4-45.2); HEMOGLOBIN 12.5 GM/dL (10.7-15.3); MCH 31.7 pg (25.7-33.7); MCHC 34.5 g/dl (32.0-36.0); MEAN CELL VOLUME 91.9 fl (80-96); MEAN PLT VOLUME 6.9 fl (7.5-11.1); PLATELET COUNT 245 10^3/uL (134-434); RBC 3.93 M/mm3 (3.60-5.2); RDW 13.2 % (11.6-15.6); WHITE BLOOD COUNT 7.2 K/mm3 (4.0-10.0)
== END 2021-05-02 05:28 ==
LOC: JER 00:40
PROC: 3E0234Z Introduction of Serum, Toxoid and Vaccine into Muscle, Percutaneous Approach (ICD-10-PCS; principal; 2021-05-02)
DX: O03.9 Complete or unspecified spontaneous abortion without complication (principal)
CPT/HCPCS: 36415; 76817-TC; 84702; 85027; 99284-25